=== PATIENT | female | born 1970 | race African-American/Black ===

== ENCOUNTER 2022-09-07 14:17 | Inpatient (IN) | payer MEDICAID ==
[~2022-09-07] VITALS: Ht 167.6 cm; Wt 107.0 kg
[2022-09-07] MEDS ORDERED: VANCOMYCIN 1G PREMIX 200 ML IV ONE (17:00)
[2022-09-07] MEDS ORDERED: PIPERACILLIN/TAZ 3.375G PREMIX 50 ML IV ONE (17:00)
[2022-09-07] MEDS ORDERED: SODIUM CHLORIDE 0.9% 1000ML BAG (SEPSIS BOLUS) IV ONE (17:00)
[2022-09-07 17:58] LABS: CHLORIDE 98 mEq/L (98-107)
[2022-09-07 18:01] LABS: INR 1.1
[2022-09-07] MEDS ORDERED: DEXAMETHASONE 10 MG/ML VIAL IV ONE (18:15)
[2022-09-07 19:34] LABS: HEMATOCRIT. 43.5 % (36.0-48.0); HEMOGLOBIN. 14.2 g/dL (12.0-16.0); MEAN CORPUSCULAR VOLUME 83.1 fL (81.0-99.0); MEAN PLATELET VOLUME 8.4 fl (7.4-10.4); PLATELET 292 x1000/uL (130-400); RED BLOOD CELL COUNT 5.24 mill/uL (4.2-5.4); RED CELL DISTRIBUTION WIDTH 15.8 % (11.6-14.6)
[2022-09-07] MEDS ORDERED: ONDANSETRON HCL 4MG/2ML INJ IV STA (20:11)
[2022-09-07] MEDS ORDERED: MORPHINE SULFATE 4 MG/ML CPJ (NOT FOR IM USE) IV STA (20:11)
[2022-09-07 22:45] LABS: PLATELET ESTIMATE NORMAL
[2022-09-08 07:08] LABS: CLARITY URINE CLEAR (CLEAR); COLOR URINE YELLOW (YELLOW); KETONES URINE 1+ (NEGATIVE); LEUKOCYTE ESTERASE URINE NEGATIVE (NEGATIVE); NITRITE URINE NEGATIVE (NEGATIVE); OCCULT BLOOD URINE TRACE (NEGATIVE); PH URINE 5.5 (4.5-8.0); PROTEIN URINE 1+ (NEGATIVE); SPECIFIC GRAVITY URINE 1.031 (1.005-1.030)
[2022-09-08] MEDS ORDERED: ACETAMINOPHEN 325MG TABLET PO PRN (08:30)
[2022-09-08] MEDS ORDERED: ONDANSETRON HCL 4MG/2ML INJ IV PRN (08:30)
[2022-09-08] MEDS ORDERED: CEFTRIAXONE 1 G PREMIX 50 ML IV SCH (08:30)
[2022-09-08] MEDS ORDERED: DEXTROSE 50% WATER 50ML SYRINGE IV PRN (08:30)
[2022-09-08] MEDS: BLOOD SUGAR DIAGNOSTIC STRIP TEST SCH ×4 (10:00→22:10)
[2022-09-08] MEDS: INSULIN LISPRO 100 UNITS/ML SUBCUT SCH ×4 (10:06→22:57)
[2022-09-08] MEDS: HYDROCODONE/ACETAMINOPHEN 5/325MG TABLET PO PRN ×3 (10:07→22:12)
[2022-09-08] MEDS: VANCOMYCIN 1G PREMIX 200 ML IV SCH ×2 (10:08→23:00)
[2022-09-08] MEDS: CEFTRIAXONE 1,000 MG in DEXTROSE 5% WATER 50 ML IV SCH (11:04)
[2022-09-08 12:35] LABS: CHLORIDE 95 mEq/L (98-107); HEMATOCRIT. 41.6 % (36.0-48.0); HEMOGLOBIN. 13.2 g/dL (12.0-16.0); MEAN CORPUSCULAR HEMOGLOBIN 26.6 pg (28.0-32.0); MEAN CORPUSCULAR VOLUME 83.7 fL (81.0-99.0); MEAN PLATELET VOLUME 8.3 fl (7.4-10.4); PLATELET 242 x1000/uL (130-400); RED BLOOD CELL COUNT 4.97 mill/uL (4.2-5.4)
[2022-09-08 15:34] LABS: PLATELET ESTIMATE NORMAL
[2022-09-08] MEDS: INSULIN GLARGINE 100 UNITS/ML SUBCUT SCH (23:50)
[2022-09-09] MEDS ORDERED: METOPROLOL TARTRATE 50MG TABLET PO SCH (04:40)
[2022-09-09 04:50] LABS: HEMATOCRIT. 42.9 % (36.0-48.0); HEMOGLOBIN. 13.8 g/dL (12.0-16.0); MEAN CORPUSCULAR HEMOGLOBIN 27.6 pg (28.0-32.0); MEAN CORPUSCULAR VOLUME 85.5 fL (81.0-99.0); MEAN PLATELET VOLUME 7.9 fl (7.4-10.4); PLATELET 193 x1000/uL (130-400); RED BLOOD CELL COUNT 5.02 mill/uL (4.2-5.4)
[2022-09-09 04:55] LABS: CHLORIDE 97 mEq/L (98-107)
[2022-09-09] MEDS: METOPROLOL TARTRATE 50MG TABLET PO SCH ×3 (06:16→18:00)
[2022-09-09] MEDS: BLOOD SUGAR DIAGNOSTIC STRIP TEST SCH ×4 (06:28→22:04)
[2022-09-09] MEDS: HYDROCODONE/ACETAMINOPHEN 5/325MG TABLET PO PRN ×3 (06:35→19:20)
[2022-09-09] MEDS ORDERED: NALOXONE HCL 0.4MG/ML VIAL IV PRN (07:30)
[2022-09-09] MEDS: INSULIN LISPRO 100 UNITS/ML SUBCUT SCH ×4 (09:32→22:10)
[2022-09-09] MEDS: VANCOMYCIN 1G PREMIX 200 ML IV SCH (09:43)
[2022-09-09] MEDS: INSULIN GLARGINE 100 UNITS/ML SUBCUT SCH ×2 (09:44→22:10)
[2022-09-09] MEDS: CEFTRIAXONE 1,000 MG in DEXTROSE 5% WATER 50 ML IV SCH (10:10)
[2022-09-09 13:06] LABS: PLATELET ESTIMATE NORMAL
[2022-09-09] MEDS: VANCOMYCIN 750MG PREMIX 150 ML IV SCH (18:00)
[2022-09-10] VITALS: BP 104/50
[2022-09-10 00:45] VITALS: BP 95/59
[2022-09-10] MEDS: IPRATROPIUM/ALBUTEROL 0.5-3(2.5)MG/3ML NEB HHN PRN ×2 (02:20→03:20)
[2022-09-10] MEDS: VANCOMYCIN 750MG PREMIX 150 ML IV SCH (02:41)
[2022-09-10] MEDS: HYDROCODONE/ACETAMINOPHEN 5/325MG TABLET PO PRN ×4 (02:41→22:22)
[2022-09-10 04:00] VITALS: BP 128/52
[2022-09-10] MEDS: METOPROLOL TARTRATE 50MG TABLET PO SCH ×5 (06:06→23:27)
[2022-09-10] MEDS: BLOOD SUGAR DIAGNOSTIC STRIP TEST SCH ×4 (07:20→20:38)
[2022-09-10] MEDS: INSULIN LISPRO 100 UNITS/ML SUBCUT SCH ×4 (07:50→22:23)
[2022-09-10 08:00] VITALS: BP 81/52
[2022-09-10] MEDS: CEFTRIAXONE 1,000 MG in DEXTROSE 5% WATER 50 ML IV SCH (09:47)
[2022-09-10] MEDS: INSULIN GLARGINE 100 UNITS/ML SUBCUT SCH ×2 (09:52→22:23)
[2022-09-10 12:00] VITALS: BP 90/59
[2022-09-10 20:00] VITALS: BP 124/70
[2022-09-11] VITALS: BP 104/76
[2022-09-11 00:03] LABS: BASOPHILS % 0.2 % (0.0-2.0); EOSINOPHILS % 0.7 % (0.0-5.0); HEMATOCRIT. 37.8 % (36.0-48.0); HEMOGLOBIN. 12.1 g/dL (12.0-16.0); LYMPHOCYTES % 19.3 % (20.0-50.0); MEAN CORPUSCULAR HEMOGLOBIN 26.9 pg (28.0-32.0); MEAN CORPUSCULAR VOLUME 84.1 fL (81.0-99.0); MEAN PLATELET VOLUME 8.6 fl (7.4-10.4); MONOCYTES % 8.6 % (2.0-8.0); NEUTROPHILS % 71.2 % (40.0-76.0); PLATELET 196 x1000/uL (130-400); RED BLOOD CELL COUNT 4.49 mill/uL (4.2-5.4); RED CELL DISTRIBUTION WIDTH 15.7 % (11.6-14.6)
[2022-09-11 00:13] LABS: CHLORIDE 92 mEq/L (98-107)
[2022-09-11] MEDS: VANCOMYCIN 750MG PREMIX 150 ML IV SCH ×3 (02:00→18:00)
[2022-09-11 04:00] VITALS: BP 124/57
[2022-09-11] MEDS: METOPROLOL TARTRATE 50MG TABLET PO SCH ×3 (06:00→19:09)
[2022-09-11] MEDS: BLOOD SUGAR DIAGNOSTIC STRIP TEST SCH ×4 (06:29→21:00)
[2022-09-11 07:39] LABS: CHLORIDE 97 mEq/L (98-107)
[2022-09-11 08:00] VITALS: BP 98/59
[2022-09-11] MEDS: CEFTRIAXONE 1,000 MG in DEXTROSE 5% WATER 50 ML IV SCH (09:03)
[2022-09-11] MEDS: INSULIN LISPRO 100 UNITS/ML SUBCUT SCH ×4 (09:05→21:00)
[2022-09-11] MEDS: INSULIN GLARGINE 100 UNITS/ML SUBCUT SCH ×2 (09:18→22:00)
[2022-09-11 12:00] VITALS: BP 105/76
[2022-09-11] MEDS: HYDROCODONE/ACETAMINOPHEN 5/325MG TABLET PO PRN ×2 (13:10→19:02)
[2022-09-11 16:00] VITALS: BP 155/77
[2022-09-11 20:00] VITALS: BP 120/66
[2022-09-12] VITALS: BP 107/76
[2022-09-12] MEDS: METOPROLOL TARTRATE 50MG TABLET PO SCH ×2 (00:06→14:04)
[2022-09-12] MEDS: HYDROCODONE/ACETAMINOPHEN 5/325MG TABLET PO PRN ×4 (00:13→19:49)
[2022-09-12] MEDS: VANCOMYCIN 750MG PREMIX 150 ML IV SCH ×3 (02:00→18:00)
[2022-09-12 04:00] VITALS: BP 101/57
[2022-09-12] MEDS: INSULIN LISPRO 100 UNITS/ML SUBCUT SCH ×4 (07:50→22:11)
[2022-09-12] MEDS: BLOOD SUGAR DIAGNOSTIC STRIP TEST SCH ×4 (07:53→21:51)
[2022-09-12 08:00] VITALS: BP 120/81
[2022-09-12 08:54] LABS: BASOPHILS % 0.3 % (0.0-2.0); HEMATOCRIT. 34.5 % (36.0-48.0); HEMOGLOBIN. 11.2 g/dL (12.0-16.0); LYMPHOCYTES % 25.5 % (20.0-50.0); MEAN CORPUSCULAR HEMOGLOBIN 27.4 pg (28.0-32.0); MEAN CORPUSCULAR VOLUME 84.6 fL (81.0-99.0); MEAN PLATELET VOLUME 8.7 fl (7.4-10.4); NEUTROPHILS % 63.2 % (40.0-76.0); PLATELET 194 x1000/uL (130-400); RED BLOOD CELL COUNT 4.08 mill/uL (4.2-5.4); RED CELL DISTRIBUTION WIDTH 15.7 % (11.6-14.6)
[2022-09-12] MEDS: CEFTRIAXONE 1,000 MG in DEXTROSE 5% WATER 50 ML IV SCH (09:50)
[2022-09-12] MEDS: INSULIN GLARGINE 100 UNITS/ML SUBCUT SCH ×2 (10:16→22:11)
[2022-09-12 12:00] VITALS: BP 137/71
[2022-09-12 16:00] VITALS: BP 98/67
[2022-09-12 20:00] VITALS: BP 120/81
[2022-09-12] MEDS: IPRATROPIUM/ALBUTEROL 0.5-3(2.5)MG/3ML NEB HHN PRN (21:01)
[2022-09-12] MEDS: SODIUM CHLORIDE 0.45% 1,000 ML IV SCH (22:00)
[2022-09-13] VITALS: BP 130/87
[2022-09-13] MEDS: METOPROLOL TARTRATE 50MG TABLET PO SCH ×3 (00:11→12:00)
[2022-09-13] MEDS: VANCOMYCIN 750MG PREMIX 150 ML IV SCH ×2 (02:00→10:00)
[2022-09-13 04:00] VITALS: BP 105/60
[2022-09-13] MEDS: HYDROCODONE/ACETAMINOPHEN 5/325MG TABLET PO PRN (04:41)
[2022-09-13 05:36] LABS: BASOPHILS % 0.5 % (0.0-2.0); EOSINOPHILS % 0.5 % (0.0-5.0); HEMOGLOBIN. 10.8 g/dL (12.0-16.0); LYMPHOCYTES % 10.6 % (20.0-50.0); MEAN CORPUSCULAR HEMOGLOBIN 27.2 pg (28.0-32.0); MEAN CORPUSCULAR VOLUME 83.1 fL (81.0-99.0); MEAN PLATELET VOLUME 8.7 fl (7.4-10.4); MONOCYTES % 5.8 % (2.0-8.0); NEUTROPHILS % 82.6 % (40.0-76.0); PLATELET 216 x1000/uL (130-400); RED BLOOD CELL COUNT 3.97 mill/uL (4.2-5.4); RED CELL DISTRIBUTION WIDTH 15.3 % (11.6-14.6)
[2022-09-13 06:19] LABS: CHLORIDE 99 mEq/L (98-107)
[2022-09-13] MEDS: BLOOD SUGAR DIAGNOSTIC STRIP TEST SCH ×4 (07:20→21:00)
[2022-09-13] MEDS: INSULIN LISPRO 100 UNITS/ML SUBCUT SCH ×2 (07:50→12:50)
[2022-09-13 08:00] VITALS: BP 101/57
[2022-09-13] MEDS: SODIUM CHLORIDE 0.45% 1,000 ML IV SCH (08:00)
[2022-09-13] MEDS: CEFTRIAXONE 1,000 MG in DEXTROSE 5% WATER 50 ML IV SCH (09:00)
[2022-09-13] MEDS: INSULIN GLARGINE 100 UNITS/ML SUBCUT SCH ×2 (10:00→22:00)
[2022-09-13] MEDS ORDERED: GLUCAGON,HUMAN RECOMBINANT 1MG/VIAL IM NR (13:30)
[2022-09-13] MEDS ORDERED: LIDOCAINE HCL 1% 10 MG/ML 10ML VIAL ONE ×2 (13:32→15:13)
[2022-09-13] MEDS ORDERED: ROCURONIUM BROMIDE 10MG/ML VIAL 5ML IV ONE ×2 (15:13→16:34)
[2022-09-13] MEDS ORDERED: DEXAMETHASONE 4MG/ML 1ML VIAL ONE (15:13)
[2022-09-13] MEDS ORDERED: ONDANSETRON HCL 4MG/2ML INJ ONE (15:13)
[2022-09-13] MEDS ORDERED: SUCCINYLCHOLINE CHLORIDE 200MG/10ML IV ONE (15:13)
[2022-09-13] MEDS ORDERED: FENTANYL CITRATE/PF 50MCG/ML 2ML VIAL ONE (15:14)
[2022-09-13] MEDS ORDERED: PROPOFOL 200MG/20ML VIAL IV ONE (15:14)
[2022-09-13] MEDS ORDERED: LIDOCAINE HCL 1% 20ML VIAL (Pyxis) INJ ONE (15:48)
[2022-09-13] MEDS ORDERED: NEOSTIGMINE METHYLSULFATE 1MG/ML 10 ML VIAL ONE (17:09)
[2022-09-13] MEDS ORDERED: GLYCOPYRROLATE 0.2 MG/ML 2ML VIAL ONE ×2 (17:09→17:10)
[2022-09-13] MEDS ORDERED: VASOPRESSIN 20 UNIT/ML 1ML ONE (17:40)
[2022-09-13] MEDS ORDERED: ONDANSETRON HCL 4MG/2ML INJ IV PRN (17:45)
[2022-09-13] MEDS ORDERED: DILTIAZEM HCL 5MG/ML 5ML VIAL IV NR (17:45)
[2022-09-13] MEDS ORDERED: DILTIAZEM HCL 125 MG in DEXT 5% WATER 100 ML IV PRN (17:45)
[2022-09-13] MEDS ORDERED: HYDROMORPHONE HCL/PF 2MG/ML CPJ IV PRN (18:00)
[2022-09-13 18:30] LABS: BG BASE EXCESS 1.1 mmol/L (-2.0-2.0); BG DEOXYHEMOGLOBIN 1.3 % (0.0-5.0); BG FRACTION INSPIRED OXYGEN 44; BG HCO3 ACT 26.6 mmol/L (22.0-26.0); BG METHEMOGLOBIN 0.4 % (0.0-1.5); BG OXYGEN SATURATION 98.7 % (92.0-98.5); BG OXYHEMOGLOBIN 97.3 % (94.0-97.0); BG PO2 126.6 mmHg (75.0-100.0); BG SAMPLE SITE RIGHT RADIAL; BG TOTAL HEMOGLOBIN 12.8 g/dL (12.0-18.0); BG VENT MODE MASK - SIMPLE
[2022-09-13 19:27] LABS: BASOPHILS % 0.5 % (0.0-2.0); EOSINOPHILS % 0.3 % (0.0-5.0); MEAN CORPUSCULAR HEMOGLOBIN 27.6 pg (28.0-32.0); MEAN CORPUSCULAR VOLUME 84.8 fL (81.0-99.0); MEAN PLATELET VOLUME 8.6 fl (7.4-10.4); NEUTROPHILS % 76.2 % (40.0-76.0); PLATELET 208 x1000/uL (130-400); RED BLOOD CELL COUNT 4.36 mill/uL (4.2-5.4); RED CELL DISTRIBUTION WIDTH 15.7 % (11.6-14.6)
[2022-09-13 19:35] LABS: CHLORIDE 102 mEq/L (98-107)
[2022-09-13 22:00] VITALS: BP 129/89
[2022-09-13] MEDS ORDERED: MAGNESIUM 2 G PREMIX 50 ML IV NR (23:30)
[2022-09-14] VITALS (10 sets, daily range): BP systolic 94–142; BP diastolic 48–88
[2022-09-14] MEDS: INSULIN LISPRO 100 UNITS/ML SUBCUT SCH ×6 (00:22→21:56)
[2022-09-14] MEDS: HYDROCODONE/ACETAMINOPHEN 5/325MG TABLET PO PRN ×5 (00:22→22:10)
[2022-09-14] MEDS: BLOOD SUGAR DIAGNOSTIC STRIP TEST SCH ×5 (00:30→21:38)
[2022-09-14] MEDS: SODIUM CHLORIDE 0.45% 1,000 ML IV SCH ×4 (00:31→23:39)
[2022-09-14] MEDS: METOPROLOL TARTRATE 50MG TABLET PO SCH ×4 (00:56→17:40)
[2022-09-14] MEDS: VANCOMYCIN 750MG PREMIX 150 ML IV SCH ×5 (02:00→17:40)
[2022-09-14 06:31] LABS: BASOPHILS % 0.3 % (0.0-2.0); EOSINOPHILS % 0.9 % (0.0-5.0); HEMATOCRIT. 31.6 % (36.0-48.0); LYMPHOCYTES % 31.6 % (20.0-50.0); MEAN CORPUSCULAR HEMOGLOBIN 26.8 pg (28.0-32.0); MEAN CORPUSCULAR VOLUME 84.1 fL (81.0-99.0); MEAN PLATELET VOLUME 8.5 fl (7.4-10.4); MONOCYTES % 10.3 % (2.0-8.0); NEUTROPHILS % 56.9 % (40.0-76.0); PLATELET 204 x1000/uL (130-400); RED BLOOD CELL COUNT 3.76 mill/uL (4.2-5.4); RED CELL DISTRIBUTION WIDTH 15.8 % (11.6-14.6)
[2022-09-14 06:37] LABS: CHLORIDE 101 mEq/L (98-107)
[2022-09-14] MEDS: INSULIN GLARGINE 100 UNITS/ML SUBCUT SCH ×2 (09:21→21:55)
[2022-09-14] MEDS ORDERED: SODIUM CHLORIDE 0.9% 250 ML IV ONE ×2 (22:30→22:36)
[2022-09-14] MEDS: DILTIAZEM HCL 60MG TABLET PO SCH (23:38)
[2022-09-15] VITALS (11 sets, daily range): BP systolic 94–150; BP diastolic 48–99
[2022-09-15] MEDS: VANCOMYCIN 750MG PREMIX 150 ML IV SCH ×3 (01:29→18:15)
[2022-09-15] MEDS: HYDROCODONE/ACETAMINOPHEN 5/325MG TABLET PO PRN ×3 (01:29→21:40)
[2022-09-15] MEDS: METOPROLOL TARTRATE 50MG TABLET PO SCH ×4 (05:35→17:27)
[2022-09-15] MEDS: BLOOD SUGAR DIAGNOSTIC STRIP TEST SCH ×4 (07:30→21:54)
[2022-09-15] MEDS: INSULIN LISPRO 100 UNITS/ML SUBCUT SCH ×4 (08:00→21:39)
[2022-09-15] MEDS ORDERED: DILTIAZEM HCL 120MG CAPSULE ER 24HR PO SCH (09:00)
[2022-09-15] MEDS: SODIUM CHLORIDE 0.45% 1,000 ML IV SCH ×2 (10:19→23:30)
[2022-09-15] MEDS: DILTIAZEM HCL 60MG TABLET PO SCH ×3 (10:19→21:41)
[2022-09-15] MEDS: INSULIN GLARGINE 100 UNITS/ML SUBCUT SCH ×2 (10:20→21:39)
[2022-09-16] VITALS (12 sets, daily range): BP systolic 111–158; BP diastolic 51–110
[2022-09-16] MEDS: METOPROLOL TARTRATE 50MG TABLET PO SCH ×5 (00:19→23:12)
[2022-09-16] MEDS: VANCOMYCIN 750MG PREMIX 150 ML IV SCH ×3 (02:14→17:05)
[2022-09-16] MEDS: HYDROCODONE/ACETAMINOPHEN 5/325MG TABLET PO PRN ×4 (02:22→22:02)
[2022-09-16] MEDS: SODIUM CHLORIDE 0.45% 1,000 ML IV SCH ×2 (06:00→15:04)
[2022-09-16] MEDS: DILTIAZEM HCL 60MG TABLET PO SCH ×3 (06:10→22:01)
[2022-09-16] MEDS: BLOOD SUGAR DIAGNOSTIC STRIP TEST SCH ×4 (07:30→21:00)
[2022-09-16] MEDS: INSULIN LISPRO 100 UNITS/ML SUBCUT SCH ×4 (08:00→21:00)
[2022-09-16 08:09] LABS: CREATINE KINASE 56 IU/L (26-192)
[2022-09-16] MEDS: INSULIN GLARGINE 100 UNITS/ML SUBCUT SCH ×2 (14:11→22:58)
[2022-09-16] MEDS: IPRATROPIUM/ALBUTEROL 0.5-3(2.5)MG/3ML NEB HHN PRN (14:52)
[2022-09-17] VITALS: BP 149/71
[2022-09-17] MEDS: VANCOMYCIN 750MG PREMIX 150 ML IV SCH ×3 (01:15→18:28)
[2022-09-17] MEDS: SODIUM CHLORIDE 0.45% 1,000 ML IV SCH ×3 (01:15→21:15)
[2022-09-17 06:00] VITALS: BP 119/71
[2022-09-17] MEDS: DILTIAZEM HCL 60MG TABLET PO SCH ×3 (06:46→21:16)
[2022-09-17] MEDS: METOPROLOL TARTRATE 50MG TABLET PO SCH ×4 (06:47→22:46)
[2022-09-17] MEDS: BLOOD SUGAR DIAGNOSTIC STRIP TEST SCH ×3 (07:46→20:03)
[2022-09-17 08:00] VITALS: BP 138/100
[2022-09-17] MEDS: INSULIN LISPRO 100 UNITS/ML SUBCUT SCH ×4 (08:26→21:34)
[2022-09-17] MEDS: HYDROCODONE/ACETAMINOPHEN 5/325MG TABLET PO PRN ×3 (10:16→21:16)
[2022-09-17] MEDS: INSULIN GLARGINE 100 UNITS/ML SUBCUT SCH ×2 (10:23→21:35)
[2022-09-17 12:00] VITALS: BP 138/80
[2022-09-17 16:00] VITALS: BP 138/89
[2022-09-17 20:00] VITALS: BP 123/66
[2022-09-18] VITALS: BP 128/73
[2022-09-18] MEDS: VANCOMYCIN 750MG PREMIX 150 ML IV SCH ×3 (01:21→18:18)
[2022-09-18 04:00] VITALS: BP 130/70
[2022-09-18] MEDS: METOPROLOL TARTRATE 50MG TABLET PO SCH ×4 (05:42→21:19)
[2022-09-18] MEDS: HYDROCODONE/ACETAMINOPHEN 5/325MG TABLET PO PRN ×3 (05:42→21:20)
[2022-09-18] MEDS: DILTIAZEM HCL 60MG TABLET PO SCH ×3 (05:46→21:10)
[2022-09-18] MEDS: BLOOD SUGAR DIAGNOSTIC STRIP TEST SCH ×4 (06:56→21:09)
[2022-09-18] MEDS: INSULIN LISPRO 100 UNITS/ML SUBCUT SCH ×4 (06:57→21:00)
[2022-09-18 08:00] VITALS: BP 139/72
[2022-09-18 08:38] LABS: CHLORIDE 106 mEq/L (98-107)
[2022-09-18] MEDS: SODIUM CHLORIDE 0.45% 1,000 ML IV SCH ×2 (11:30→18:15)
[2022-09-18] MEDS: INSULIN GLARGINE 100 UNITS/ML SUBCUT SCH ×2 (11:31→22:30)
[2022-09-18 12:00] VITALS: BP 123/82
[2022-09-18 16:00] VITALS: BP 119/80
[2022-09-18 20:00] VITALS: BP 128/81
[2022-09-19] VITALS: BP 125/75
[2022-09-19 04:00] VITALS: BP 135/82
[2022-09-19] MEDS: VANCOMYCIN 750MG PREMIX 150 ML IV SCH ×3 (04:07→17:47)
[2022-09-19] MEDS: SODIUM CHLORIDE 0.45% 1,000 ML IV SCH ×3 (04:08→22:34)
[2022-09-19] MEDS: DILTIAZEM HCL 60MG TABLET PO SCH ×3 (05:22→22:29)
[2022-09-19] MEDS: METOPROLOL TARTRATE 50MG TABLET PO SCH ×3 (05:23→17:47)
[2022-09-19] MEDS: BLOOD SUGAR DIAGNOSTIC STRIP TEST SCH ×4 (06:41→20:50)
[2022-09-19] MEDS: INSULIN LISPRO 100 UNITS/ML SUBCUT SCH ×4 (07:40→22:27)
[2022-09-19 08:00] VITALS: BP 116/55
[2022-09-19] MEDS: FUROSEMIDE 40MG/4ML VIAL IVP SCH (09:10)
[2022-09-19] MEDS: INSULIN GLARGINE 100 UNITS/ML SUBCUT SCH ×2 (09:29→22:28)
[2022-09-19] MEDS ORDERED: TETRACAINE/BENZOCAINE/BUTAMBEN 20 GM SPRAY MM ONE (11:31)
[2022-09-19] MEDS ORDERED: LIDOCAINE 2% JELLY PREFILLED SYRINGE MM ONE (11:31)
[2022-09-19 12:00] VITALS: BP 140/70
[2022-09-19] MEDS ORDERED: PROPOFOL 200MG/20ML VIAL IV ONE (12:11)
[2022-09-19] MEDS ORDERED: MIDAZOLAM HCL 2 MG/2 ML VIAL ONE (12:37)
[2022-09-19] MEDS ORDERED: HYDROMORPHONE HCL/PF 2MG/ML CPJ IV PRN (13:00)
[2022-09-19] MEDS ORDERED: ONDANSETRON HCL 4MG/2ML INJ IV PRN (13:00)
[2022-09-19] MEDS ORDERED: MEPERIDINE HCL/PF 25MG/ML CPJ IV PRN (13:00)
[2022-09-19] MEDS ORDERED: LABETALOL 5MG/ML SYR 20 MG/4 ML SYRINGE IV PRN (13:00)
[2022-09-19] MEDS ORDERED: DILT360C27 MT (14:59)
[2022-09-19 16:00] VITALS: BP 132/73
[2022-09-19 20:00] VITALS: BP 140/64
[2022-09-19] MEDS: HYDROCODONE/ACETAMINOPHEN 5/325MG TABLET PO PRN (20:05)
[2022-09-20] VITALS (7 sets, daily range): BP systolic 112–145; BP diastolic 55–83
[2022-09-20] MEDS: VANCOMYCIN 750MG PREMIX 150 ML IV SCH ×3 (01:19→17:05)
[2022-09-20] MEDS: BLOOD SUGAR DIAGNOSTIC STRIP TEST SCH ×4 (05:53→21:00)
[2022-09-20] MEDS: DILTIAZEM HCL 60MG TABLET PO SCH ×3 (05:55→21:57)
[2022-09-20] MEDS: METOPROLOL TARTRATE 50MG TABLET PO SCH ×4 (05:55→17:05)
[2022-09-20] MEDS: HYDROCODONE/ACETAMINOPHEN 5/325MG TABLET PO PRN ×3 (05:59→15:55)
[2022-09-20] MEDS: INSULIN LISPRO 100 UNITS/ML SUBCUT SCH ×4 (06:49→22:01)
[2022-09-20] MEDS: FUROSEMIDE 40MG/4ML VIAL IVP SCH (09:29)
[2022-09-20] MEDS: INSULIN GLARGINE 100 UNITS/ML SUBCUT SCH ×2 (09:30→22:02)
[2022-09-20] MEDS: SODIUM CHLORIDE 0.45% 1,000 ML IV SCH ×2 (09:31→22:03)
[2022-09-20] MEDS: FUROSEMIDE 40MG TABLET PO SCH (17:05)
[2022-09-20] MEDS: APIXABAN 5 MG TABLET PO SCH (21:58)
[2022-09-21] VITALS: BP 130/67
[2022-09-21] MEDS: VANCOMYCIN 750MG PREMIX 150 ML IV SCH ×2 (02:09→09:36)
[2022-09-21] MEDS: METOPROLOL TARTRATE 50MG TABLET PO SCH ×5 (02:09→23:09)
[2022-09-21] MEDS: HYDROCODONE/ACETAMINOPHEN 5/325MG TABLET PO PRN ×2 (03:16→23:10)
[2022-09-21 04:00] VITALS: BP 125/60
[2022-09-21] MEDS: SODIUM CHLORIDE 0.45% 1,000 ML IV SCH ×2 (05:37→17:10)
[2022-09-21] MEDS: DILTIAZEM HCL 60MG TABLET PO SCH ×3 (05:45→23:09)
[2022-09-21 06:45] LABS: CHLORIDE 101 mEq/L (98-107)
[2022-09-21] MEDS: BLOOD SUGAR DIAGNOSTIC STRIP TEST SCH ×4 (07:01→21:07)
[2022-09-21] MEDS: INSULIN LISPRO 100 UNITS/ML SUBCUT SCH ×4 (07:01→21:06)
[2022-09-21 08:00] VITALS: BP 107/65
[2022-09-21] MEDS: APIXABAN 5 MG TABLET PO SCH ×2 (08:21→21:03)
[2022-09-21] MEDS: FUROSEMIDE 40MG TABLET PO SCH (08:21)
[2022-09-21] MEDS ORDERED: FURO40TA5 PO (08:34)
[2022-09-21] MEDS ORDERED: LANTUSUD SUBCUT (08:34)
[2022-09-21] MEDS ORDERED: APIX5TAB MT (08:34)
[2022-09-21] MEDS: INSULIN GLARGINE 100 UNITS/ML SUBCUT SCH ×2 (09:55→21:07)
[2022-09-21 12:00] VITALS: BP 116/69
[2022-09-21 16:00] VITALS: BP 126/87
[2022-09-21 20:00] VITALS: BP 127/86
[2022-09-21] MEDS: VANCOMYCIN 1G PREMIX 200 ML IV SCH (21:03)
[2022-09-22] VITALS: BP 120/80
[2022-09-22] MEDS: SODIUM CHLORIDE 0.45% 1,000 ML IV SCH ×3 (01:56→21:23)
[2022-09-22 04:00] VITALS: BP 103/56
[2022-09-22] MEDS: METOPROLOL TARTRATE 50MG TABLET PO SCH ×3 (06:00→18:00)
[2022-09-22] MEDS: DILTIAZEM HCL 60MG TABLET PO SCH ×3 (06:21→21:22)
[2022-09-22] MEDS: BLOOD SUGAR DIAGNOSTIC STRIP TEST SCH ×4 (06:45→21:22)
[2022-09-22] MEDS: INSULIN LISPRO 100 UNITS/ML SUBCUT SCH ×4 (06:45→21:26)
[2022-09-22 08:00] VITALS: BP 143/85
[2022-09-22] MEDS: VANCOMYCIN 1G PREMIX 200 ML IV SCH ×2 (10:13→21:22)
[2022-09-22] MEDS: APIXABAN 5 MG TABLET PO SCH ×2 (10:13→21:22)
[2022-09-22] MEDS: FUROSEMIDE 40MG TABLET PO SCH (10:14)
[2022-09-22] MEDS: INSULIN GLARGINE 100 UNITS/ML SUBCUT SCH ×2 (10:27→21:25)
[2022-09-22 12:00] VITALS: BP 111/78
[2022-09-22 16:00] VITALS: BP 96/74
[2022-09-22 20:00] VITALS: BP 133/78
[2022-09-22] MEDS: HYDROCODONE/ACETAMINOPHEN 5/325MG TABLET PO PRN (21:28)
[2022-09-23] VITALS: BP 101/80
[2022-09-23 04:00] VITALS: BP 152/72
[2022-09-23] MEDS: HYDROCODONE/ACETAMINOPHEN 5/325MG TABLET PO PRN ×2 (05:40→21:53)
[2022-09-23] MEDS: DILTIAZEM HCL 60MG TABLET PO SCH ×3 (05:40→21:53)
[2022-09-23] MEDS: INSULIN LISPRO 100 UNITS/ML SUBCUT SCH ×4 (05:41→21:55)
[2022-09-23] MEDS: BLOOD SUGAR DIAGNOSTIC STRIP TEST SCH ×4 (05:41→21:00)
[2022-09-23] MEDS: METOPROLOL TARTRATE 50MG TABLET PO SCH ×4 (05:41→17:30)
[2022-09-23 07:27] LABS: CHLORIDE 101 mEq/L (98-107)
[2022-09-23 07:39] LABS: BASOPHILS % 0.7 % (0.0-2.0); HEMATOCRIT. 33.8 % (36.0-48.0); HEMOGLOBIN. 11.1 g/dL (12.0-16.0); LYMPHOCYTES % 49.6 % (20.0-50.0); MEAN CORPUSCULAR VOLUME 85.1 fL (81.0-99.0); MEAN PLATELET VOLUME 7.8 fl (7.4-10.4); MONOCYTES % 8.4 % (2.0-8.0); NEUTROPHILS % 38.3 % (40.0-76.0); PLATELET 461 x1000/uL (130-400); RED BLOOD CELL COUNT 3.97 mill/uL (4.2-5.4); RED CELL DISTRIBUTION WIDTH 16.2 % (11.6-14.6)
[2022-09-23 08:00] VITALS: BP 121/70
[2022-09-23] MEDS: FUROSEMIDE 40MG TABLET PO SCH (08:21)
[2022-09-23] MEDS: SODIUM CHLORIDE 0.45% 1,000 ML IV SCH ×2 (08:21→17:30)
[2022-09-23] MEDS: VANCOMYCIN 1G PREMIX 200 ML IV SCH ×2 (08:21→21:53)
[2022-09-23] MEDS: APIXABAN 5 MG TABLET PO SCH ×2 (08:21→21:54)
[2022-09-23] MEDS: INSULIN GLARGINE 100 UNITS/ML SUBCUT SCH ×2 (09:52→21:54)
[2022-09-23] MEDS ORDERED: POTASSIUM CHLORIDE 20MEQ TABLET SR PO NR (11:00)
[2022-09-23 12:00] VITALS: BP 143/83
[2022-09-23 16:00] VITALS: BP 127/71
[2022-09-23 20:00] VITALS: BP 140/88
[2022-09-24] VITALS: BP 143/74
[2022-09-24] MEDS: METOPROLOL TARTRATE 50MG TABLET PO SCH ×4 (00:38→18:00)
[2022-09-24 04:00] VITALS: BP 117/66
[2022-09-24] MEDS: DILTIAZEM HCL 60MG TABLET PO SCH ×3 (05:55→22:00)
[2022-09-24] MEDS: SODIUM CHLORIDE 0.45% 1,000 ML IV SCH ×2 (05:56→15:43)
[2022-09-24] MEDS: INSULIN LISPRO 100 UNITS/ML SUBCUT SCH ×4 (06:26→21:00)
[2022-09-24] MEDS: BLOOD SUGAR DIAGNOSTIC STRIP TEST SCH ×4 (06:26→21:47)
[2022-09-24 08:00] VITALS: BP 104/60
[2022-09-24] MEDS: HYDROCODONE/ACETAMINOPHEN 5/325MG TABLET PO PRN (08:31)
[2022-09-24] MEDS: VANCOMYCIN 1G PREMIX 200 ML IV SCH ×2 (08:31→21:58)
[2022-09-24] MEDS: APIXABAN 5 MG TABLET PO SCH ×2 (08:31→21:59)
[2022-09-24] MEDS: FUROSEMIDE 40MG TABLET PO SCH (08:31)
[2022-09-24] MEDS: INSULIN GLARGINE 100 UNITS/ML SUBCUT SCH ×2 (10:58→22:03)
[2022-09-24 12:00] VITALS: BP 127/64
[2022-09-24 12:32] LABS: CHLORIDE 102 mEq/L (98-107)
[2022-09-24 16:00] VITALS: BP 151/82
[2022-09-24 20:00] VITALS: BP 138/85
[2022-09-24] MEDS ORDERED: HYDROCODONE/ACETAMINOPHEN 5/325MG TABLET PO PRN (22:15)
[2022-09-25] VITALS: BP 139/78
[2022-09-25] MEDS: METOPROLOL TARTRATE 50MG TABLET PO SCH ×2 (00:51→06:40)
[2022-09-25 04:00] VITALS: BP 135/64
[2022-09-25 05:36] VITALS: BP 135/64
[2022-09-25] MEDS: BLOOD SUGAR DIAGNOSTIC STRIP TEST SCH (06:17)
[2022-09-25] MEDS: DILTIAZEM HCL 60MG TABLET PO SCH (06:38)
[2022-09-25] MEDS: INSULIN LISPRO 100 UNITS/ML SUBCUT SCH (06:40)
[2022-09-25 08:00] VITALS: BP 128/75
[2022-09-25] MEDS: VANCOMYCIN 1G PREMIX 200 ML IV SCH (08:06)
[2022-09-25] MEDS: FUROSEMIDE 40MG TABLET PO SCH (08:06)
[2022-09-25] MEDS: APIXABAN 5 MG TABLET PO SCH (08:06)
[2022-09-25] MEDS: SODIUM CHLORIDE 0.45% 1,000 ML IV SCH (08:07)
[2022-09-25] MEDS: INSULIN GLARGINE 100 UNITS/ML SUBCUT SCH (09:11)
[2022-09-29] MEDS ORDERED: APIX5TAB MT (19:08)
[2022-09-29] MEDS ORDERED: INSU100I28 SQ (19:08)
[2022-09-29] MEDS ORDERED: DILT360C27 MT (19:08)
[2022-09-29] MEDS ORDERED: FURO40TA5 MT (19:08)
== END 2022-09-25 10:00 | disposition home health service (06) | DRG 710 ==
LOC: ER 14:24 → MICUSO 20:26 → EDBEDREQ 20:42 → EDBEDREQTM 20:42 → EDBEDREQ 20:43 → 6EST 09-10 00:28 → 5EST 09-13 21:35 → 8WST 09-17 17:20
PROVIDERS: ADMIT Internal Medicine; ATTEND Internal Medicine
PROC: 5A09357 Assistance with Respiratory Ventilation, Less than 24 Consecutive Hours, Continuous Positive Airway Pressure (ICD-10-PCS; 2022-09-10)
PROC: 0W920ZZ Drainage of Face, Open Approach (ICD-10-PCS; principal; 2022-09-13)
PROC: 0X9G0ZZ Drainage of Right Wrist Region, Open Approach (ICD-10-PCS; 2022-09-13)
PROC: 0JB90ZZ Excision of Buttock Subcutaneous Tissue and Fascia, Open Approach (ICD-10-PCS; 2022-09-13)
PROC: 02HV33Z Insertion of Infusion Device into Superior Vena Cava, Percutaneous Approach (ICD-10-PCS; 2022-09-13)
PROC: B548ZZA Ultrasonography of Superior Vena Cava, Guidance (ICD-10-PCS; 2022-09-13)
PROC: B5181ZA Fluoroscopy of Superior Vena Cava using Low Osmolar Contrast, Guidance (ICD-10-PCS; 2022-09-13)
PROC: 5A09357 Assistance with Respiratory Ventilation, Less than 24 Consecutive Hours, Continuous Positive Airway Pressure (ICD-10-PCS; 2022-09-14)
PROC: 5A09357 Assistance with Respiratory Ventilation, Less than 24 Consecutive Hours, Continuous Positive Airway Pressure (ICD-10-PCS; 2022-09-15)
PROC: 5A09357 Assistance with Respiratory Ventilation, Less than 24 Consecutive Hours, Continuous Positive Airway Pressure (ICD-10-PCS; 2022-09-17)
PROC: 5A09357 Assistance with Respiratory Ventilation, Less than 24 Consecutive Hours, Continuous Positive Airway Pressure (ICD-10-PCS; 2022-09-25)
DX: A41.02 Sepsis due to Methicillin resistant Staphylococcus aureus (principal); I50.31 Acute diastolic (congestive) heart failure; E88.09 Other disorders of plasma-protein metabolism, not elsewhere classified; E11.65 Type 2 diabetes mellitus with hyperglycemia; E66.9 Obesity, unspecified; L02.33 Carbuncle of buttock; I11.0 Hypertensive heart disease with heart failure; L02.413 Cutaneous abscess of right upper limb; I48.91 Unspecified atrial fibrillation; L03.317 Cellulitis of buttock; K57.90 Diverticulosis of intestine, part unspecified, without perforation or abscess without bleeding; Z20.822 Contact with and (suspected) exposure to COVID-19; J45.909 Unspecified asthma, uncomplicated; B95.62 Methicillin resistant Staphylococcus aureus infection as the cause of diseases classified elsewhere; G47.33 Obstructive sleep apnea (adult) (pediatric); K80.20 Calculus of gallbladder without cholecystitis without obstruction; L02.436 Carbuncle of left lower limb; Z68.38 Body mass index [BMI] 38.0-38.9, adult; Z79.01 Long term (current) use of anticoagulants
CPT/HCPCS: 36415; 36573; 36600; 71045; 74176; 80048; 80053; 80202; 81003; 82375; 82550; 82805; 82962; 83036; 83605; 83735; 83880; 84145; 84443; 84484; 85025; 87070; 87075; 87077; 87186; 87426; 88304; 93005; 93306; 93312; 93970; 94640; 94660; 97162; 97166; 99285; C1725; J0330; J0696; J1100; J1170; J1610; J1815; J1940; J2250; J2270; J2405; J2543; J2704; J2710; J3010; J3370; J3475; J3490; J7030; J7060